=== PATIENT | female | born 1995 | race American Indian/Alaskan Native ===

== ENCOUNTER 2016-04-29 09:11 | Emergency (ER) | payer SELFPAY ==
[2016-04-29 09:18] VITALS: BP 125/74
[2016-04-29] MEDS ORDERED: DUONEB 0.5 MG-3 MG/3 ML SOLN IH ONE (10:28)
[2016-04-29] MEDS ORDERED: MOTRIN PO ONE (10:28)
--- NOTE | 2016-04-29 11:36 | Emergency Department Report ---
- General Chief Complaint: Upper Respiratory Infection Stated Complaint: COUGH/CONGESTION Time Seen by Provider: 04/29/16 10:17 Source: patient Mode of arrival: Ambulatory Limitations: No Limitations - History of Present Illness Initial Comments: 21-F PMH seizures, hypothyroid presents with 2 days of nonproductive cough, states that coughing has been hurting her ribs. Denies significant fever chills no nausea no vomiting denies palpitations. Waxing and waning left-sided pain at left costal margin beneath her left breast. Denies any rash Denies any trauma to chest wall. Denies any form of control Severity: moderate Severity scale (0 -10): 6 Quality: aching Improves With: NSAID Worsens With: deep breaths Associated Symptoms: cough - Related Data Home Medications Medication Instructions Recorded Confirmed Last Taken Fluticasone [Flonase] 04/29/16 Unknown Loratadine [Claritin] 10 mg PO DAILY 04/29/16 04/29/16 Unknown Previous Rx's Medication Instructions Recorded Last Taken Type ALBUTEROL Inhaler [Proair] 1 puff IH Q4H PRN #1 inha 04/29/16 Unknown Rx Naproxen [Naprosyn TAB] 500 mg PO BID PRN #20 tablet 04/29/16 Unknown Rx Phenylephrine/Dm/Acetaminop/GG 10 ml PO Q8H PRN #1 bottle 04/29/16 Unknown Rx [Mucinex Fast-Max Sev Cold Liq] Allergies Allergy/AdvReac Type Severity Reaction Status Date / Time amoxicillin Allergy Rash Verified 07/23/14 10:39 diphenhydramine HCl Allergy Seizure Verified 07/23/14 10:39 [From Benadryl] peanut Allergy Hives Verified 07/23/14 10:39 ED Review of Systems ROS: Stated complaint: COUGH/CONGESTION Other details as noted in HPI Constitutional: denies: chills, fever Eyes: denies: eye pain, eye discharge, vision change ENT: denies: ear pain, throat pain Respiratory: denies: cough, shortness of breath, wheezing Cardiovascular: denies: chest pain, palpitations Endocrine: no symptoms reported Gastrointestinal: denies: abdominal pain, nausea, diarrhea Genitourinary: denies: urgency, dysuria, discharge Musculoskeletal: denies: back pain, joint swelling, arthralgia Skin: denies: rash, lesions Neurological: denies: headache, weakness, paresthesias Psychiatric: denies: anxiety, depression Hematological/Lymphatic: denies: easy bleeding, easy bruising ED Past Medical Hx - Past Medical History Previous Medical History?: Yes Hx Seizures: Yes Additional medical history: hypothyroid. PSEUDOSEIZURE, Sinusitis - Surgical History Past Surgical History?: Yes Additional Surgical History: tonsillectomy - Social History Smoking Status: Never Smoker Substance Use Type: Non Opiate Pain, Other - Medications Home Medications: Home Medications Medication Instructions Recorded Confirmed Last Taken Type ALBUTEROL Inhaler [Proair] 1 puff IH Q4H PRN #1 inha 04/29/16 Unknown Rx Fluticasone [Flonase] 04/29/16 Unknown History Loratadine [Claritin] 10 mg PO DAILY 04/29/16 04/29/16 Unknown History Naproxen [Naprosyn TAB] 500 mg PO BID PRN #20 tablet 04/29/16 Unknown Rx Phenylephrine/Dm/Acetaminop/GG 10 ml PO Q8H PRN #1 bottle 04/29/16 Unknown Rx [Mucinex Fast-Max Sev Cold Liq] ED Physical Exam - General Limitations: No Limitations General appearance: alert, in no apparent distress - Head Head exam: Present: atraumatic, normocephalic - Eye Eye exam: Present: normal appearance, PERRL, EOMI - ENT ENT exam: Present: mucous membranes moist - Neck Neck exam: Present: normal inspection - Respiratory Respiratory exam: Present: normal lung sounds bilaterally, chest wall tenderness (mild reproducible chest wall tenderness left side). Absent: respiratory distress - Cardiovascular Cardiovascular Exam: Present: regular rate, normal rhythm. Absent: systolic murmur, diastolic murmur, rubs, gallop - GI/Abdominal GI/Abdominal exam: Present: soft, normal bowel sounds - Extremities Exam Extremities exam: Present: normal inspection - Back Exam Back exam: Present: normal inspection - Neurological Exam Neurological exam: Present: alert, oriented X3, CN II-XII intact, normal gait - Psychiatric Psychiatric exam: Present: normal affect, normal mood - Skin Skin exam: Present: warm, dry, intact, normal color. Absent: rash ED Course Vital Signs 04/29/16 04/29/16 04/29/16 09:15 10:50 11:05 Temperature 97.8 F Pulse Rate 79 Pulse Rate [ 75 90 Posterior Bilateral Throughout] Respiratory 20 Rate Respiratory 16 18 Rate [Posterior Bilateral Throughout] Blood Pressure 125/74 O2 Sat by Pulse 100 Oximetry ED Medical Decision Making - Medical Decision Making A/P: Chest wall pain, URI 1-naproxen 500 mg when necessary for pain, pro-air inhaler, mucinex 2-PERC and Wells criteria VERY low risk for PE 3-follow-up primary care doctor 4-patient advised to return to the ED if she experiences chest pain with associated palpitations diaphoresis or dyspnea PERC RULE Rules out PE if no criteria are present and pre-test probability is <15%. Age >50 NO HR > 100 NO O2 Sat on Room Air < 95%NO Prior History of Venous ThromboembolismNO Trauma or Surgery within 4 weeksNO HemoptysisNO Exogenous Estrogen NO Unilateral Leg Swelling NO No need for further workup, as <2% chance of PE. If no criteria are positive and clinician's pre-test probability is <15%, PERC Rule criteria are satisfied. WELLS CRITERIA FOR PE Clinical Signs and Symptoms of DVTNO+3 PE Is #1 Diagnosis, or Equally LikelyNO+3 Heart Rate > 100NO+1.5 Immobilization at least 3 days, or Surgery in the Previous 4 weeksNO+1.5 Previous, objectively diagnosed PE or DVTNO+1.5 HemoptysisNO+1 Malignancy w/ Treatment within 6 mo, or palliativeNO+1 0.0points Low risk group: 1.3% chance of PE in an ED population. Another study assigned scores 4 as 'PE Unlikely' and had a 3% incidence of PE. Critical care attestation.: If time is entered above; I have spent that time in minutes in the direct care of this critically ill patient, excluding procedure time. ED Disposition Clinical Impression: Cough URI (upper respiratory infection) Qualifiers: URI type: unspecified viral URI Qualified Code(s): J06.9 - Acute upper respiratory infection, unspecified; B97.89 - Other viral agents as the cause of diseases classified elsewhere Disposition: DISCHARGED TO HOME OR SELFCARE Is pt being admited?: No Does the pt Need Aspirin: No Condition: Stable Instructions: Upper Respiratory Infection (ED), Cold Symptoms (ED) Prescriptions: Phenylephrine/Dm/Acetaminop/GG [Mucinex Fast-Max Sev Cold Liq] 10 ml PO Q8H PRN #1 bottle PRN Reason: Cough Naproxen [Naprosyn TAB] 500 mg PO BID PRN #20 tablet PRN Reason: Pain ALBUTEROL Inhaler [Proair] 1 puff IH Q4H PRN #1 inha PRN Reason: Cough Referrals: FIFI ROMERO MD [Primary Care Provider] - 3-5 Days Forms: Accompanied Note, Work/School Release Form(ED) Time of Disposition: 11:37
== END 2016-04-29 11:58 | disposition home or self-care (01) ==
LOC: ED 09:11
DX: J06.9 Acute upper respiratory infection, unspecified (principal); B97.89 Other viral agents as the cause of diseases classified elsewhere; R56.9 Unspecified convulsions; E03.9 Hypothyroidism, unspecified; Z90.89 Acquired absence of other organs; Z91.010 Allergy to peanuts; Z88.1 Allergy status to other antibiotic agents; Z88.8 Allergy status to other drugs, medicaments and biological substances
CPT/HCPCS: 94640

== ENCOUNTER 2017-03-07 07:10 | Emergency (ER) | payer OTHER ==
[2017-03-07 07:59] LABS: Bilirubin,Urine Negative (Negative); Blood,Urine Negative (Negative); Ketones,Urine Negative (Negative)
[2017-03-07 08:00] LABS: Leukocyte Esterase,Urine Negative (Negative); Nitrite,Urine Negative (Negative); Protein,Urine <15 mg/dL mg/dL (Negative); Urobilinogen,Urine < 2.0 mg/dL (<2.0)
[2017-03-07 08:05] LABS: Bacteria,Urine 1+ /HPF (Negative); RBC,Urine < 1.0 /HPF (0.0-6.0)
[2017-03-07 12:09] LABS: Basophils % (Auto) 0.9 % (0.0-1.8); Eosinophils % (Auto) 1.4 % (0.0-4.3); Mean Corpuscular HGB Conc 30 % (30-34); Platelet Count 353 K/mm3 (140-440); Red Blood Count 5.72 M/mm3 (3.65-5.03); Red Cell Distribution Width 19.3 % (13.2-15.2); White Blood Count 7.2 K/mm3 (4.5-11.0)
[2017-03-07 12:14] LABS: Hematocrit 38.5 % (30.3-42.9); Hemoglobin 11.5 gm/dl (10.1-14.3); Mean Corpuscular Hemoglobin 20 pg (28-32); Mean Corpuscular Volume 67 fl (79-97)
[2017-03-07 12:29] LABS: Alanine Aminotransferase 16 units/L (7-56); Albumin 4.3 g/dL (3.9-5); Albumin/Globulin Ratio 1.4 %; Alkaline Phosphatase 98 units/L (35-129); Anion Gap 19 mmol/L; BUN/Creatinine Ratio 13; Blood Urea Nitrogen 8 mg/dL (7-17); Calcium 9.7 mg/dL (8.4-10.2); Carbon Dioxide 26 mmol/L (22-30); Chloride 99.6 mmol/L (98-107); Glucose 103 mg/dL (65-100); Lipase 18 units/L (13-60); Potassium 4.4 mmol/L (3.6-5.0); Sodium 140 mmol/L (137-145); Total Protein 7.3 g/dL (6.3-8.2)
--- NOTE | 2017-03-07 13:36 | Ultrasound Report ---
Transabdominal pelvic ultrasound. History: Left pelvic pain. Findings: The uterus is normal in size and configuration. No focal uterine abnormalities are seen. The endometrial echo appears normal at 8 mm in thickness. The right ovary is normal. There is a 1.6 cm cyst in the left ovary. Doppler evaluation demonstrates normal blood flow to the ovaries. There is no fluid within the cul-de-sac. Impression: Small left ovarian cyst.
--- NOTE | 2017-03-07 16:34 | Emergency Department Report ---
ED Abdominal Pain HPI - General Chief Complaint: Abdominal Pain Stated Complaint: PELVIC PAIN, SEIZURE IN SLEEP Time Seen by Provider: 03/07/17 16:19 Source: patient Mode of arrival: Ambulatory Limitations: No Limitations - History of Present Illness MD Complaint: abdominal pain (LLQ) -: Sudden, Last night (Awoke from sleep. Patient says often has pseudoseizures when she has pain. No new symptoms from usual pseudoseizures.) Location: LLQ Radiation: none Migration to: no migration Severity: moderate Severity scale (0 -10): 6 Quality: cramping, stabbing Consistency: intermittent Improves With: nothing Worsens With: movement Associated Symptoms: nausea Treatments Prior to Arrival: NSAIDs - Related Data LMP (females 10-50): this week Home Medications Medication Instructions Recorded Confirmed Last Taken Fluticasone [Flonase] 04/29/16 Unknown Loratadine [Claritin] 10 mg PO DAILY 04/29/16 04/29/16 Unknown Previous Rx's Medication Instructions Recorded Last Taken Type ALBUTEROL Inhaler [Proair] 1 puff IH Q4H PRN #1 inha 04/29/16 Unknown Rx Naproxen [Naprosyn TAB] 500 mg PO BID PRN #20 tablet 04/29/16 Unknown Rx Phenylephrine/Dm/Acetaminop/GG 10 ml PO Q8H PRN #1 bottle 04/29/16 Unknown Rx [Mucinex Fast-Max Sev Cold Liq] Allergies Allergy/AdvReac Type Severity Reaction Status Date / Time amoxicillin Allergy Rash Verified 03/07/17 07:15 diphenhydramine HCl Allergy Seizure Verified 03/07/17 07:15 [From Benadryl] peanut Allergy Hives Verified 03/07/17 07:15 ED Review of Systems ROS: Stated complaint: PELVIC PAIN, SEIZURE IN SLEEP Other details as noted in HPI Constitutional: denies: chills, fever Eyes: denies: eye pain, eye discharge, vision change ENT: denies: ear pain, throat pain Respiratory: denies: cough, shortness of breath, wheezing Cardiovascular: denies: chest pain, palpitations Endocrine: no symptoms reported Gastrointestinal: abdominal pain, nausea. denies: diarrhea Genitourinary: denies: urgency, dysuria, discharge Musculoskeletal: denies: back pain, joint swelling, arthralgia Skin: denies: rash, lesions Neurological: denies: headache, weakness, paresthesias Psychiatric: denies: anxiety, depression Hematological/Lymphatic: denies: easy bleeding, easy bruising ED Past Medical Hx - Past Medical History Previous Medical History?: Yes Hx Hypertension: No Hx CVA: No Hx Heart Attack/AMI: No Hx Congestive Heart Failure: No Hx Diabetes: No Hx Deep Vein Thrombosis: No Hx Pulmonary Embolism: No Hx GERD: No Hx Liver Disease: No Hx Renal Disease: No Hx Sickle Cell Disease: No Hx Seizures: Yes Hx Asthma: Yes Additional medical history: hypothyroid. PSEUDOSEIZURE, Sinusitis - Surgical History Additional Surgical History: tonsillectomy - Family History Family history: no significant - Social History Smoking Status: Never Smoker Substance Use Type: None - Medications Home Medications: Home Medications Medication Instructions Recorded Confirmed Last Taken Type ALBUTEROL Inhaler [Proair] 1 puff IH Q4H PRN #1 inha 04/29/16 Unknown Rx Fluticasone [Flonase] 04/29/16 Unknown History Loratadine [Claritin] 10 mg PO DAILY 04/29/16 04/29/16 Unknown History Naproxen [Naprosyn TAB] 500 mg PO BID PRN #20 tablet 04/29/16 Unknown Rx Phenylephrine/Dm/Acetaminop/GG 10 ml PO Q8H PRN #1 bottle 04/29/16 Unknown Rx [Mucinex Fast-Max Sev Cold Liq] ED Physical Exam - General Limitations: No Limitations General appearance: alert, in no apparent distress - Head Head exam: Present: atraumatic, normocephalic - Eye Eye exam: Present: normal appearance - ENT ENT exam: Present: mucous membranes moist - Neck Neck exam: Present: normal inspection - Respiratory Respiratory exam: Present: normal lung sounds bilaterally. Absent: respiratory distress - Cardiovascular Cardiovascular Exam: Present: regular rate, normal rhythm. Absent: systolic murmur, diastolic murmur, rubs, gallop - GI/Abdominal GI/Abdominal exam: Present: soft, tenderness (LLQ with no peritonitis or rebound. ), normal bowel sounds - Extremities Exam Extremities exam: Present: normal inspection - Back Exam Back exam: Present: normal inspection - Neurological Exam Neurological exam: Present: alert, oriented X3 - Psychiatric Psychiatric exam: Present: normal affect, normal mood - Skin Skin exam: Present: warm, dry, intact, normal color. Absent: rash ED Course Vital Signs 03/07/17 03/07/17 03/07/17 07:16 12:56 12:57 Temperature 98.1 F Pulse Rate 69 68 Respiratory 20 14 16 Rate Blood Pressure 120/71 Blood Pressure 119/71 [Left] O2 Sat by Pulse 100 100 100 Oximetry ED Medical Decision Making - Lab Data Result diagrams: 03/07/17 11:50 03/07/17 11:50 - Radiology Data Radiology results: report reviewed (Left ovarian cyst, good blood flow, no torsion.) - Differential Diagnosis diverticulitis, Gastroenteritis, ovarian cyst, Ectopic . Critical care attestation.: If time is entered above; I have spent that time in minutes in the direct care of this critically ill patient, excluding procedure time. ED Disposition Clinical Impression: Ovarian cyst, left Disposition: DC-01 TO HOME OR SELFCARE Is pt being admited?: No Does the pt Need Aspirin: No Condition: Good Instructions: Abdominal Pain (ED) Referrals: DERICK PHILIPPE MD [Staff Physician] - 3-5 Days
[2017-03-07 16:59] VITALS: BP 120/74
== END 2017-03-07 16:58 | disposition home or self-care (01) ==
LOC: ED 07:10
DX: N83.202 Unspecified ovarian cyst, left side (principal); J45.909 Unspecified asthma, uncomplicated; E03.9 Hypothyroidism, unspecified; Z90.89 Acquired absence of other organs; Z88.1 Allergy status to other antibiotic agents; Z91.010 Allergy to peanuts
CPT/HCPCS: 36415; 80053; 81001; 81025; 83690; 85025; 93975

== ENCOUNTER 2019-08-29 17:57 | Emergency (ER) | payer SELFPAY ==
[2019-08-29 18:11] VITALS: BP 134/62
== END 2019-08-29 20:09 | disposition left against medical advice (07) ==
LOC: ED 17:57
DX: L50.0 Allergic urticaria (principal); Z53.21 Procedure and treatment not carried out due to patient leaving prior to being seen by health care provider

== ENCOUNTER 2021-11-05 16:07 | Emergency (ER) | payer SELFPAY ==
--- NOTE | 2021-11-05 17:13 | XRay Report ---
LEFT ANKLE 3 VIEWS 1702 INDICATION: left ankle injury COMPARISON: None available. FINDINGS: Diffuse soft tissue swelling. No fractures or dislocations. No significant arthritic change s. Signer Name: Tl Riley MD Signed: 11/05/2021 5:08 PM Workstation Name: [id number]
[2021-11-05] MEDS ORDERED: ACETAMINOPHEN 325 MG TAB PO ONE (21:17)
[2021-11-05] MEDS ORDERED: IBUPROFEN 600 MG TAB PO ONE (21:17)
--- NOTE | 2021-11-05 21:18 | Emergency Department Report ---
ED Lower Extremity HPI - General Chief Complaint: Extremity Injury, Lower Stated Complaint: LT ANKLE INJURY Time Seen by Provider: 11/05/21 20:37 Source: patient, RN notes reviewed Mode of arrival: Ambulatory Limitations: No Limitations - History of Present Illness Initial Comments: The patient was evaluated in the emergency department for symptoms described in the history of present illness. He/she was evaluated in the context of the global COVID-19 pandemic, which necessitated consideration that the patient might be at risk for infection with the virus that causes COVID-19. Institutional protocols and algorithms that pertain to the evaluation of patients at risk for COVID-19 are in a state of rapid change based on information released by regulatory bodies including the CDC and federal and state organizations. These policies and algorithms were followed during the patient's care in the emergency department. Please note that these policies, procedures and recommendations changed on a rapid basis. This is a pleasant and cooperative 26-year-old female who states that she is not , who currently works for [employer], who presents to the department today with a complaint of left ankle pain which is nontraumatic for years. No additional injuries or complaints. MD Complaint: ankle injury -: year(s) Injury: Ankle: Left Type of Injury: unknown Severity: mild Improves With: rest Worsens With: movement, palpation Associated Symptoms: swelling, able to partially bear weight, ambulatory. denies: numbness, tingling - Related Data Home Medications Medication Instructions Recorded Confirmed Last Taken Fluticasone [Flonase] 04/29/16 Unknown Loratadine (Nf) [Claritin] 10 mg PO DAILY 04/29/16 04/29/16 Unknown Previous Rx's Medication Instructions Recorded Last Taken Type Albuterol Mdi (or & Nicu Only) 1 puff IH Q4H PRN #1 inha 04/29/16 Unknown Rx [Proair] Naproxen [Naprosyn TAB] 500 mg PO BID PRN #20 tablet 04/29/16 Unknown Rx Phenylephrine/Dm/Acetaminop/GG 10 ml PO Q8H PRN #1 bottle 04/29/16 Unknown Rx [Mucinex Fast-Max Sev Cold Liq] Acetaminophen [Non-Aspirin Extra 500 mg PO Q6HR PRN #30 tablet 11/05/21 Unknown Rx Strength] Ibuprofen [Motrin] 600 mg PO Q8H PRN #30 tablet 11/05/21 Unknown Rx Allergies Allergy/AdvReac Type Severity Reaction Status Date / Time amoxicillin Allergy Rash Verified 08/29/19 18:08 diphenhydramine HCl Allergy Seizure Verified 08/29/19 18:08 [From Benadryl] peanut Allergy Hives Verified 08/29/19 18:08 ED Review of Systems ROS: Stated complaint: LT ANKLE INJURY Other details as noted in HPI Comment: All other systems reviewed and negative Musculoskeletal: joint swelling, arthralgia ED Past Medical Hx - Past Medical History Previous Medical History?: Yes Hx Hypertension: No Hx CVA: No Hx Heart Attack/AMI: No Hx Congestive Heart Failure: No Hx Diabetes: No Hx Deep Vein Thrombosis: No Hx Pulmonary Embolism: No Hx GERD: No Hx Liver Disease: No Hx Renal Disease: No Hx Sickle Cell Disease: No Hx Seizures: Yes Hx Asthma: Yes Additional medical history: hypothyroid. PSEUDOSEIZURE, Sinusitis - Surgical History Past Surgical History?: Yes Additional Surgical History: tonsillectomy - Social History Smoking Status: Never Smoker Substance Use Type: None - Medications Home Medications: Home Medications Medication Instructions Recorded Confirmed Last Taken Type Albuterol Mdi (or & Nicu Only) 1 puff IH Q4H PRN #1 inha 04/29/16 Unknown Rx [Proair] Fluticasone [Flonase] 04/29/16 Unknown History Loratadine (Nf) [Claritin] 10 mg PO DAILY 04/29/16 04/29/16 Unknown History Naproxen [Naprosyn TAB] 500 mg PO BID PRN #20 tablet 04/29/16 Unknown Rx Phenylephrine/Dm/Acetaminop/GG 10 ml PO Q8H PRN #1 bottle 04/29/16 Unknown Rx [Mucinex Fast-Max Sev Cold Liq] Acetaminophen [Non-Aspirin Extra 500 mg PO Q6HR PRN #30 tablet 11/05/21 Unknown Rx Strength] Ibuprofen [Motrin] 600 mg PO Q8H PRN #30 tablet 11/05/21 Unknown Rx ED Physical Exam - General Limitations: No Limitations, Other (Patient on cell phone and not in any acute distress) General appearance: alert, in no apparent distress, obese - Head Head exam: Present: atraumatic, normocephalic - Eye Eye exam: Present: normal appearance, EOMI. Absent: nystagmus - ENT ENT exam: Present: normal exam, normal orophraynx, mucous membranes moist, normal external ear exam - Neck Neck exam: Present: normal inspection, full ROM. Absent: tenderness, meningismus - Respiratory Respiratory exam: Present: normal lung sounds bilaterally. Absent: respiratory distress, wheezes, rales, rhonchi, stridor, decreased breath sounds - Cardiovascular Cardiovascular Exam: Present: regular rate, normal rhythm, normal heart sounds. Absent: bradycardia, tachycardia, irregular rhythm, systolic murmur, diastolic murmur, rubs, gallop - GI/Abdominal GI/Abdominal exam: Present: soft. Absent: distended, tenderness, guarding, rebound, rigid, pulsatile mass - Extremities Exam Extremities exam: Present: normal inspection (Cast test is functional and intact bilaterally. There is no foot tenderness.), full ROM, normal capillary refill, other (2+ pulses noted in the bilateral upper and lower extremities. There is no palpable cord. negative Homans sign. Muscular compartments are soft. The pelvis is stable.). Absent: tenderness (There is minimal soft tissue swelling. There is minimal left-sided lateral malleolar tenderness. There is no redness, pus or streaking. Full range of motion of the lower extremities.), pedal edema, calf tenderness - Back Exam Back exam: Present: normal inspection, full ROM. Absent: tenderness, CVA tenderness (R), CVA tenderness (L), paraspinal tenderness, vertebral tenderness - Neurological Exam Neurological exam: Present: alert, oriented X3, normal gait, other (No facial droop. Tongue midline. Extraocular movements intact bilaterally. Facial sens ation intact to light touch in V1, V2, V3 distribution bilaterally. 5 and a 5 strength in 4 extremities. Sensation intact to light touch in 4 extremities.). Absent: motor sensory deficit - Psychiatric Psychiatric exam: Present: normal affect, normal mood - Skin Skin exam: Present: warm, dry, intact, normal color. Absent: rash ED Course Vital Signs 11/05/21 11/05/21 16:42 22:01 Temperature 98.8 F Pulse Rate 62 71 Respiratory 20 16 Rate Blood Pressure 107/55 102/39 [Right] O2 Sat by Pulse 97 99 Oximetry ED Lower Extremity MDM - Lab Data Vital Signs 11/05/21 16:42 Temperature 98.8 F Pulse Rate 62 Respiratory 20 Rate Blood Pressure 107/55 [Right] O2 Sat by Pulse 97 Oximetry - Radiology Data Radiology results: pending, report reviewed, image reviewed LEFT ANKLE 3 VIEWS 1702 INDICATION: left ankle injury COMPARISON: None available. FINDINGS: Diffuse soft tissue swelling. No fractures or d islocations. No significant arthritic changes. Signer Name: Tl Riley MD Signed: 11/05/2021 4:08 PM Workstation Name: [id number] - Medical Decision Making Differential diagnosis, including but not limited to: Sprain, strain, overuse injury Assessment and plan: 26-year-old female presenting with left-sided ankle pain and swelling for years. She is neurovascular intact. She has full range of motion. There is no evidence of fracture, dislocation, compartment syndrome or neurovascular compromise. X-rays show no emergent findings. Weightbearing as tolerated, splint for comfort, supportive shoes, Tylenol, Motrin, outpatient follow-up. Patient does not appear to have an emergent medical condition present at this time. Critical care attestation.: If time is entered above; I have spent that time in minutes in the direct care of this critically ill patient, excluding procedure time. ED Disposition Clinical Impression: Left ankle pain Qualifiers: Chronicity: acute Qualified Code(s): M25.572 - Pain in left ankle and joints of left foot Disposition: 01 HOME / SELF CARE / HOMELESS Is pt being admited?: No Does the pt Need Aspirin: No Condition: Good Instructions: Ankle Pain Additional Instructions: Alternate ice packs and heat packs as needed for physical pain. Do not wear fli p-flops or sandals. Wear supportive shoes with good ankle and plantar foot support. Take the prescribed pain medication as needed and directed. Weightbearing as tolerated. Physical activities as tolerated. Avoid excessive and strenuous physical activities. Follow-up with a physical therapist, estate planner, orthopedist or sports medicine physician within the next month. Please return to the emergency room right away with new pain, worsened pain, migration of pain, projectile vomiting, change in mental status, confusion, inability tolerate liquid feeds, new, worsened or different symptoms not present on the initial emergency room evaluation Prescriptions: Ibuprofen [Motrin] 600 mg PO Q8H PRN #30 tablet PRN Reason: Pain Acetaminophen [Non-Aspirin Extra Strength] 500 mg PO Q6HR PRN #30 tablet PRN Reason: Pain , Severe (7-10) Referrals: [facility] [Provider Group] - 3-5 Days LUKAS MCCONNELL DPM [Staff Physician] - 3-5 Days DIAMOND KAY MD [Staff Physician] - 3-5 Days Forms: Work/School Release Form(ED)
[2021-11-05 22:02] VITALS: BP 102/39
== END 2021-11-05 22:38 | disposition home or self-care (01) ==
LOC: ED 16:07
DX: M25.572 Pain in left ankle and joints of left foot (principal); R56.9 Unspecified convulsions; J45.909 Unspecified asthma, uncomplicated; Z91.010 Allergy to peanuts; Z91.09 Other allergy status, other than to drugs and biological substances; Z79.899 Other long term (current) drug therapy
CPT/HCPCS: 99283